=== PATIENT | male | born 1935 | race Caucasian/White ===

== ENCOUNTER 2018-05-28 16:36 | Inpatient (IN) | payer MEDICARE ==
[~2018-05-28] VITALS: Ht 172.7 cm; Wt 92.1 kg
[~2018-05-28 16:36] MED LIST: AMOXICILLIN 50500 M1 PO; AMOXICILLIN PO; ASPIRIN81 M2 PO; BACTRIM DS TAB1 EACH PO; BENADRYL25 MG PO; LIPITOR40 MG PO; LISINOPRIL5 MG PO; LOPID600 MG PO; LOPRESSOR25 PO; NORVASC5 MG PO; PREDNISONE 20 M20 MG PO; TOPROL XL25 MG PO; TRIAMTERENE-HC1 EAC1 PO; VITAMIN D1000 UNI1 PO; ZETIA10 MG PO
[2018-05-28 16:58] VITALS: BP 155/77
[2018-05-28 17:19] LABS: ABSOLUTE BASOPHILS 0.1 thou/uL (0.0-0.2); ABSOLUTE EOSINOPHILS 0.2 thou/uL (0.0-0.7); ABSOLUTE LYMPHOCYTES 1.2 thou/uL (0.8-5.3); ABSOLUTE MONOCYTES 0.7 thou/uL (0.0-1.2); ABSOLUTE NEUTROPHILS 4.4 thou/uL (1.6-8.1); BASOPHILS 1.3 %; EOSINOPHILS 3.2 %; HEMATOCRIT 42.4 % (42.0-52.0); HEMOGLOBIN 14.4 gm/dL (14.0-18.0); LYMPHOCYTES 18.8 %; MCHC 33.9 g/dL (28.0-37.0); MCV 94.5 fL (80.0-100.0); MPV 8.6 fl. (7.2-11.1); NUCLEATED RBCS 0 /100WBC; PLATELET COUNT* 201 thou/uL (150-400); POLYS 66.7 %; RBC 4.48 mil/uL (4.50-6.00); RDW-CV 13.5 % (10.5-14.5); WBC 6.5 thou/uL (4.0-11.0)
[2018-05-28 17:32] LABS: PROTIME 10.1 Seconds (9.20-11.50)
[2018-05-28 17:38] LABS: ANION GAP 6 mmol/L (7-16); BUN 27 mg/dL (7-18); CALCIUM 9.2 mg/dL (8.5-10.1); CHLORIDE 103 mmol/L (98-107); CO2 30 mmol/L (21-32); CREATININE 1.8 mg/dL (0.6-1.3); GLUCOSE 96 mg/dL (70-99); POTASSIUM 4.1 mmol/L (3.5-5.1); SODIUM 139 mmol/L (136-145); TROPONIN-I LEVEL <0.06 ng/mL (<0.06)
[2018-05-28 17:39] LABS: ALBUMIN 3.6 g/dL (3.4-5.0); ALKALINE PHOSPHATASE 77 U/L (46-116); NT-PRO BRAIN NAT PEPTIDE 605 pg/mL (<300); SGOT 22 U/L (15-37); SGPT 17 U/L (30-65); TOTAL BILIRUBIN 0.3 mg/dL (<0.1-1.0); TOTAL PROTEIN 7.5 g/dL (6.4-8.2)
[2018-05-28 20:00] VITALS: BP 131/66
[2018-05-28 20:20] VITALS: BP 123/68
--- NOTE | 2018-05-28 20:47 | NUR ---
PT ARRIVED FROM ED VIA STRETCHER AT 2019 IN STABLE CONDITION. PT ORIENTED TO ROOM AND ALLOWED FOR QUESTIONS. WILL ADMIT PT. FAMILY AT BEDSIDE WHEN PT ARRIVED BUT HAVE SINCE GONE HOME. PT PLACED ON TELEMETRY.
[2018-05-28 23:11] LABS: URINE BILIRUBIN NEGATIVE (Negative); URINE BLOOD NEGATIVE (Negative); URINE CLARITY CLEAR; URINE COLOR YELLOW; URINE GLUCOSE-RANDOM NEGATIVE (Negative); URINE KETONES NEGATIVE (Negative); URINE LEUKOCYTES-REFLEX NEGATIVE (Negative); URINE NITRITE-REFLEX NEGATIVE (Negative); URINE PROTEIN NEGATIVE (Negative); URINE UROBILINOGEN 0.2 E.U./dl (0.2-1.0)
[2018-05-29 00:30] VITALS: BP 109/47
[2018-05-29 04:30] VITALS: BP 110/53
--- NOTE | 2018-05-29 05:39 | NUR ---
PT UP TO BATHROOM AND TOLERATED WELL. PT NO C/O PAIN THROUGHOUT SHIFT. PT SR/SB 49 ON MONITOR. PT STATES USUALLY IN 50s FOR HR. PT REMAINS ON RA. PT TO HAVE MRI/MRA/ECHO TODAY. AM LABS TO BE REVIEWED.
[2018-05-29 06:15] LABS: HEMATOCRIT 39.8 % (42.0-52.0); HEMOGLOBIN 13.5 gm/dL (14.0-18.0); MCH 32.1 pg (26.0-34.0); MCHC 33.8 g/dL (28.0-37.0); MCV 94.8 fL (80.0-100.0); MPV 8.7 fl. (7.2-11.1); RBC 4.19 mil/uL (4.50-6.00); RDW-CV 13.5 % (10.5-14.5); WBC 5.4 thou/uL (4.0-11.0)
[2018-05-29 06:25] LABS: ALKALINE PHOSPHATASE 59 U/L (46-116); ANION GAP 7 mmol/L (7-16); BUN 27 mg/dL (7-18); CHLORIDE 106 mmol/L (98-107); CHOLESTEROL 124 mg/dL (<200); CO2 30 mmol/L (21-32); CREATININE 1.6 mg/dL (0.6-1.3); GLUCOSE 84 mg/dL (70-99); HDL CHOLESTEROL 47 mg/dL (>40); LDL CHOLESTEROL 60 mg/dL (<100); POTASSIUM 4.1 mmol/L (3.5-5.1); SGOT 18 U/L (15-37); SGPT 16 U/L (30-65); SODIUM 143 mmol/L (136-145); TC:HDL 2.6 Ratio (Not establshd); TOTAL BILIRUBIN 0.5 mg/dL (<0.1-1.0); TOTAL PROTEIN 6.4 g/dL (6.4-8.2); TRIGLYCERIDE 88 mg/dL (<150); VLDL 18 mg/dL (<40)
[2018-05-29 06:36] LABS: SERUM ASSESSMENT CLEAR
[2018-05-29 08:30] VITALS: BP 125/70
--- NOTE | 2018-05-29 12:10 | NUR ---
ASSUMED PT CARE AT 0700 PT IS ALERT AND ORIENTED X 4 PT IS FORGETFUL, PT DENIES PAIN OR SOA ON RA, PT IS UP AD YON PT IS NOT A FALL RISK, PT IS SB ON THE MONITOR, WILL CONTINUE TO MONITOR
[2018-05-29 12:34] VITALS: BP 111/65
[2018-05-29] MEDS ORDERED: ASPIRIN325 PO (13:26)
[2018-05-29 16:26] VITALS: BP 111/65
[2018-05-30 03:09] LABS: GLYCOHEMOGLOBIN (HGB A1C) 5.9 % (4.8-5.6)
--- NOTE | 2018-05-30 08:36 | NUR ---
PT ORDERS RECEIVED, PT DISCHARGED PRIOR TO COMPLETION.
--- NOTE | 2018-05-30 16:31 | EKG ---
[place] [address] ELECTROCARDIOGRAM REPORT Name: TIFFANIE GARCIA Room: [address] DIS IN M.R.#: [id number] Admission: 05/28/18 Attend Phys: Aby Arnold MD Discharge: 05/29/18 Date of : 31 Report #: [id number] THIS REPORT FOR: //name// [facility] ED Test Date: 2018-05-28 Test Time: 16:54:00 Pat Name: TIFFANIE GARCIA Department: Room: [facility] Gender: Humidifier Operator: Marcie HERNANDEZ : 1935 Requested By: Lawrence Greer Order Number: [id number] MD: Gagan Sotelo Measurements Intervals [place] Rate: 60 P: -8 NC: 191 QRS: -22 QRSD: 86 T: 28 QT: 438 QTc: 438 Interpretive Statements Sinus rhythm Atrial premature complex Left axis deviation Abnormal R-wave progression, early transition Nonspecific abnrm T, anterolateral leads Baseline wander in lead(s) V2 Compared to ECG 05/26/2014 07:10:20 Atrial premature complex(es) now present T-wave abnormality no longer present Electronically Signed On 05-30-2018 16:30:53 [employer] by Gagan Sotelo [email or web address] <ELECTRONICALLY SIGNED> By: Gagan Sotelo MD, FACC 05/30/18 1630 1654 1654 Gagan Sotelo MD, [facility] /EPI
--- NOTE | 2018-05-31 13:52 | EEG ---
[address] [address] EEG STUDY REPORT Name: TIFFANIE GARCIA Room: [address] IN M.R.#: [id number] Admission: 05/28/18 Attend Phys: Aby Arnold MD Discharge: 05/29/18 Date of : 31 Report #: [id number] THIS REPORT FOR: //name// CC: Aby Mari Anthony Sotelo DATE OF SERVICE: 05/29/2018 This patient is being evaluated for episode of transient memory loss. EEG was done by placing the electrodes by standard 10-20 system of electrode placement. Both referential and sequential montages were used for recording. Background activity in this patient's EEG is about 11 Hz and 40 microvolts. This patient became drowsy that is associated with bilateral slowing. Photic stimulation is unremarkable. Throughout the record, no active epileptiform activity was noticed. IMPRESSION: This patient's electroencephalogram is within normal limit. Thank you very much for this referral. <ELECTRONICALLY SIGNED> By: Christiano Hare MD 05/31/18 1352 1643 1654Pverenice Hare MD /nt
--- NOTE | 2018-05-31 13:52 | CON ---
[address] [address] CONSULTATION Name: TIFFANIE GARCIA Room: [address] IN M.R.#: [id number] Admission: 05/28/18 Attend Phys: Aby Arnold MD Discharge: 05/29/18 Date of : 31 Report #: [id number] THIS REPORT FOR: //name// CC: Aby Sotelo DATE OF SERVICE: 05/29/2018 HISTORY OF PRESENT ILLNESS: This is an 82-year-old male patient who was evaluated by me, one episode of loss of memory. He just kept asking his the same question again and again. He did not have any speech difficulty with that. He did not have any focal deficit. Symptoms were severe when it happened, but it resolved in few hours by itself. Symptoms started spontaneously without any trauma. 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 He had a history of coronary artery disease. He follows up with Dr. Sotelo and they do carotid Doppler on a regular basis. He has only one kidney. His creatinine is mildly elevated. He has been told not to use any dye for any x-rays until the disadvantages can be justified by the benefits. He does have hypertension. He indicates his blood pressure stays reasonably under control. He does not know what his blood pressure was when this episode happened. The patient does also have coronary artery disease, but he feels back to his baseline. He does not complain of any new eye, ENT, cardiac, respiratory, GI, , musculoskeletal, constitutional, dermatological, hematological, psychiatric, throat, allergic symptom associated with present symptomatology. PAST MEDICAL HISTORY: Negative for this kind of episode. FAMILY HISTORY: Negative for seizure. SOCIAL HISTORY: He says he does not drink alcohol on a regular basis. PHYSICAL EXAMINATION: Indicates he is alert, responsive, oriented, able to follow simple and complex commands. His speech, concentration, fund of knowledge and memory is at his baseline. Cranial nerve examination 2-12 is unremarkable. His strength, sensation, reflexes and tone is symmetrical. He has no cerebellar sign. I tried to look at the fundus, but could not have a very good look at the patient's fundus. There is no meningeal sign. His pulses are palpable. He has no edema, cyanosis or jaundice. Cardiac examination is unremarkable. No respiratory difficulty or rhonchi. He has no thyroid mass. His hearing and vision is adequate. He is moderately built. Blood pressure is 111/65, respiration is 18, pulse is 53, temperature is 97.9. LABORATORY DATA: His white count is normal at 5.4. [place] [address] CONSULTATION Name: TIFFANIE GARCIA Room: [address] IN M.R.#: [id number] Admission: 05/28/18 Attend Phys: Aby Arnold MD Discharge: 05/29/18 Date of : 31 Report #: [id number] indicate GFR of only 41. His albumin is low and his TSH is borderline at 4.3. 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 He has known about that for more than 10 years. He follows up with Dr. Sotelo. He gets carotid Doppler on a regular basis with him. This is an incidental finding and nothing to do with the patient's symptoms. RECOMMENDATIONS: I discussed the situation with him. He wants to go home. From neurological perspective, we will get an EEG done. After that he can go home. He should continue his aspirin and management of his vascular risk factor by a public works supervisor. I will add a vitamin B12 to his blood workup. Thank you very much for this referral. <ELECTRONICALLY SIGNED> By: Christiano Hare MD 05/31/18 1352 1242 [id number] Hare MD /nt
== END 2018-05-29 16:44 | disposition home or self-care (01) | DRG 69 ==
LOC: M.ERS 16:36 → M.TBA-ER 17:36 → M.2W 20:36
PROVIDERS: Family Medicine; ADMIT Internal Medicine
DX: G45.9 Transient cerebral ischemic attack, unspecified (principal); I65.21 Occlusion and stenosis of right carotid artery; I25.10 Atherosclerotic heart disease of native coronary artery without angina pectoris; N18.9 Chronic kidney disease, unspecified; I12.9 Hypertensive chronic kidney disease with stage 1 through stage 4 chronic kidney disease, or unspecified chronic kidney disease; Z90.49 Acquired absence of other specified parts of digestive tract; Z95.1 Presence of aortocoronary bypass graft; Z88.1 Allergy status to other antibiotic agents; Z88.8 Allergy status to other drugs, medicaments and biological substances; Z79.899 Other long term (current) drug therapy; Z79.82 Long term (current) use of aspirin